=== PATIENT | female | born 1970 | race Caucasian/White ===

== ENCOUNTER 2016-04-16 13:01 | Emergency (ER) | payer OTHER ==
[~2016-04-16] VITALS: Ht 167.6 cm; Wt 76.4 kg
[~2016-04-16 13:01] MED LIST: COCO1CAP PO; IRON PO; LEVO75TA PO; LISI-461 PO; OMEGCAP2 PO; OXYC5TAB PO
[2016-04-16 13:07] VITALS: TEMP 36.5; Ht 167.6 cm; Wt 76.4 kg
[2016-04-16] MEDS ORDERED: HYDROmorphone INJ 1 MG/ML SYR IV STA (13:24)
[2016-04-16] MEDS ORDERED: SODIUM CHLORIDE 0.9% 1000ML 1,000 ML IV STA (13:24)
[2016-04-16] MEDS ORDERED: KETOROLAC TROMETHAMINE 30 MG/ML VIAL IV STA (13:24)
--- NOTE | 2016-04-16 13:54 | EMERGENCY ROOM VISIT NOTE ---
History Report prepared by Mode: Stephanie Roth Under the Supervision of: Dr. Osito Norris M.D. First contact with patient: 13:17 Chief Complaint: ABDOMINAL PAIN Stated Complaint: ABD PAIN Nursing Triage Summary: Triage note: pt reports "i have severe abd cramping." pt reports ablasion approx 6 months ago. pt reports nausea. pt reports she has not taken anything for pain since 0830 today. History of Present Illness The patient is a 45 year old female who presents to the Emergency Room with complaints of waxing and waning diffuse abdominal pain that started 3 days ago. The pain worsened today. The patient states that the pain feels like her normal menstrual cramps, but it is more severe. She tried to relieve the pain with Advil, but it offered her no relief. The patient is also experiencing shortness of breath secondary to the pain. Additionally, she is experiencing vaginal bleeding. 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 The patient reports that her bowel movements have been normal and she denies diarrhea or hematochezia. The patient denies any chance of because her "tubes are tied." She states that she had an endometrial ablation done about 6 months ago secondary to adenomyosis. She states that her vaginal bleeding was so severe at that time that she was becoming anemic. The patient called her OB-DRILL PRESS OPERATOR [employer] earlier today and they told her to come into the ED. The patient does not have her appendix, but she still has her gallbladder. Source of History: patient Onset: 3-4 days ago Position: abdomen Quality: cramping Timing: waxes/wanes Associated Symptoms: + SOB (with pain), No diarrhea, No hematochezia Note: vaginal bleeding Review of Systems See HPI for pertinent positives & negatives. A total of 10 systems reviewed and were otherwise negative. Past Medical & Surgical Medical Problems: (1) Eczema (2) Hypertension Family History Cancer Diabetes mellitus Heart disease Hypertension Kidney disease Kidney stones Seizures Social History Smoking Status: Never Smoker Marital Status: single Housing Status: lives alone Current/Historical Medications Scheduled Coconut Oil (Coconut Oil Organic), 1 CAP PO QAM Hydrochlorothiazide (Hydrochlorothiazide), 12.5 MG PO QAM Levothyroxine Sodium (Synthroid), 75 MCG PO QAM Lisinopril (Zestril), 10 MG PO QAM [place]-3 Fatty Acids (Fish Oil), 1 CAP PO TID Scheduled PRN Ibuprofen (Advil), 800 MG PO Q8 PRN for Pain Oxycodone/Acetaminophen 5MG/325MG (Percocet 5MG/325MG), 1-2 TAB PO Q4H PRN for Pain Allergies Coded Allergies: Bupropion (Verified Allergy, Unknown, TONGUE SWELLING, 04/16/16) Physical Exam Vital Signs Date Time Temp Pulse Resp B/P Pulse Ox O2 Delivery O2 Flow Rate FiO2 04/16/16 16:19 67 18 151/93 100 04/16/16 15:37 71 18 142/89 100 Room Air 04/16/16 14:35 74 20 126/80 98 Room Air 04/16/16 13:59 75 04/16/16 13:07 36.5 77 18 203/95 100 Room Air Physical Exam GENERAL: Patient is a healthy-appearing well-nourished female. HEAD: Normocephalic atraumatic EYES: Ocular movements intact pupils equal and react to light OROPHARYNX mucous membranes are moist no exudates present no erythema or edema present NECK: Supple no nuchal rigidity CHEST: Good equal expansion LUNGS: Clear and equal to auscultation CARDIAC: Normal S1 and S2 ABDOMEN: Soft tenderness in left lower quadrant no guarding BACK: No CVA tenderness EXTREMITIES: No pain upon palpation normal muscle strength in all groups no clubbing cyanosis or edema NEURO: Patient is following commands is answering questions appropriately. Alert and oriented x3 Cranial Nerves 2-12 grossly intact Medical Decision & Procedures ER Provider Diagnostic Interpretation: X-ray results as stated below per my interpretation and radiologist interpretation. Other radiology results as stated below per my review and radiologist interpretation: ABDOMEN 2VIEW W/PA CHEST RTN IMPRESSION: No evidence of bowel obstruction. No evidence of free air. Electronically signed by: Diaz Mcguire M.D. 04/16/2016 3:35 PM Dictated Date/Time: 04/16/2016 3:34 PM EXAMINATION: PELVIC ULTRASOUND IMPRESSION: 1. Moderately distended central endometrial canal with probable hemorrhagic fluid level 2. This potentially relates to hydrometrocolpos versus cervical stenosis 3.. Small bilateral ovarian cysts. 4. Several uterine fibroids Electronically signed by: Mikhail Roberts M.D. 04/16/2016 3:41 PM Dictated Date/Time: 04/16/2016 3:36 PM Laboratory Results 04/16/16 13:43 Red Blood Count 3.66, Mean Corpuscular Volume 92.1, Mean Corpuscular Hemoglobin 32.8, Mean Corpuscular Hemoglobin Concent 35.6, Mean Platelet Volume 9.9, Neutrophils (%) (Auto) 76.8, Lymphocytes (%) (Auto) 11.7, Monocytes (%) (Auto) 8.9, Eosinophils (%) (Auto) 1.6, Basophils (%) (Auto) 0.5, Neutrophils # (Auto) 7.91, Lymphocytes # (Auto) 1.20, Monocytes # (Auto) 0.92, Eosinophils # (Auto) 0.16, Basophils # (Auto) 0.05 04/16/16 13:43 Test 04/16/16 13:15 04/16/16 13:43 Urine Color YELLOW Urine Appearance CLEAR (CLEAR) Urine pH 6.0 (4.5-7.5) Urine Specific Jackson 1.008 (1.000-1.030) Urine Protein NEG (NEG) Urine Glucose (UA) NEG (NEG) Urine Ketones NEG (NEG) Urine Occult Blood 3+ (NEG) Urine Nitrite NEG (NEG) Urine Bilirubin NEG (NEG) Urine Urobilinogen NEG (NEG) Urine Leukocyte Esterase SMALL (NEG) Urine WBC (Auto) 5-10 /hpf (0-5) Urine RBC (Auto) 5-10 /hpf (0-4) Urine Hyaline Casts (Auto) 1-5 /lpf (0-5) Urine Epithelial Cells (Auto) >30 /lpf (0-5) Urine Bacteria (Auto) NEG (NEG) White Blood Count 10.29 K/uL (4.8-10.8) Red Blood Count 3.66 M/uL (4.2-5.4) Hemoglobin 12.0 g/dL (12.0-16.0) Hematocrit 33.7 % (37-47) Mean Corpuscular Volume 92.1 fL (80-100) Mean Corpuscular Hemoglobin 32.8 pg (25-34) Mean Corpuscular Hemoglobin Concent 35.6 g/dl (32-36) Platelet Count 291 K/uL (130-400) Mean Platelet Volume 9.9 fL (7.4-10.4) Neutrophils (%) (Auto) 76.8 % Lymphocytes (%) (Auto) 11.7 % Monocytes (%) (Auto) 8.9 % Eosinophils (%) (Auto) 1.6 % Basophils (%) (Auto) 0.5 % Neutrophils # (Auto) 7.91 K/uL (1.4-6.5) Lymphocytes # (Auto) 1.20 K/uL (1.2-3.4) Monocytes # (Auto) 0.92 K/uL (0.11-0.59) Eosinophils # (Auto) 0.16 K/uL (0-0.5) Basophils # (Auto) 0.05 K/uL (0-0.2) RDW Standard Deviation 45.1 fL (36.4-46.3) RDW Coefficient of Variation 13.3 % (11.5-14.5) Immature Granulocyte % (Auto) 0.5 % Immature Granulocyte # (Auto) 0.05 K/uL (0.00-0.02) Anion Gap 11.0 mmol/L (3-11) Est Creatinine Clear Calc Drug Dose 93.1 ml/min Estimated GFR () 104.9 Estimated GFR (Non- 90.5 BUN/Creatinine Ratio 10.6 (10-20) Calcium Level 8.9 mg/dl (8.5-10.1) Total Bilirubin 0.7 mg/dl (0.2-1) Direct Bilirubin 0.2 mg/dl (0-0.2) Aspartate Amino Transf (AST/SGOT) 21 U/L (15-37) Alanine Aminotransferase (ALT/SGPT) 28 U/L (12-78) Alkaline Phosphatase 54 U/L (45-117) Total Protein 7.2 gm/dl (6.4-8.2) Albumin 3.7 gm/dl (3.4-5.0) Lipase 73 U/L (73-393) Human Chorionic Gonadotropin, Qual NEG (NEG) Labs reviewed by ED physician. Medications Administered Medications (Trade) Dose Ordered Sig/Saturnino Route Start Time Stop Time Status Last Admin Dose Admin Sodium Chloride (Nss 1000ml) 1,000 ml @ 999 mls/hr Q1H1M STAT IV 04/16/16 13:24 04/16/16 14:24 DC 04/16/16 13:56 999 MLS/HR Ketorolac Tromethamine (Toradol Inj) 30 mg NOW STAT IV 2/10/17 13:24 04/16/16 13:26 DC 04/16/16 13:57 30 MG Oxycodone/ Acetaminophen (Percocet 5/ 325MG Home Pack) 1 homepack UD ONCE PO 04/16/16 16:15 04/16/16 16:16 DC 04/16/16 16:05 1 HOMEPACK ED Course 1318: Past medical records reviewed. The patient was evaluated in room A7. A complete history and physical examination was performed. 1324: Ordered Toradol Inj 30 mg IV, Sodium Chloride 1000 ml @ 999 mls/hr IV 1552: I discussed the patient's case with Dr. Ngo - OB-[employer]RILL PRESS OPERATOR [employer]. She recommends having the patient follow-up in the office on Tuesday. 1559: Upon reexamination the patient is doing well. I discussed results and treatment plan with the patient. She verbalizes agreement and understanding. The patient is ready for discharge. 1615: Ordered Oxycodone/Acetaminophen 1 homepack PO Medical Decision Differential diagnosis: Etiologies such as appendicitis, diverticulitis, PUD, biliary pathology, UTI, pancreatitis, obstruction, mesenteric ischemia, aortic pathology, infections, inflammatory bowel disease, renal colic, as well as others were entertained. This is a 45-year-old female who presents emergency department complaining of pelvic cramping. The patient has a history of ablation is requesting additional imaging. For this reason IV was established, patient given normal saline bolus, Toradol. She refused Dilaudid emergency department. Repeat examination revealed much improvement patient's symptoms. The patient's ultrasound is concerning for hydrometrocolpos. She was discussed with OB who felt that the patient can be safely discharged home with close follow-up with the office. I did discuss these results with the patient as well was in agreement with the treatment plan. The patient was given a prescription for Percocet until her follow-up. Patient was in agreement with the treatment plan. Consults Time Called: 0 Consulting Physician: Dr. Ngo - OB[employer]PER[employer] Returned Call: [phone] I discussed the patient's case with Dr. Ngo - OB[employer]. She recommends having the patient follow-up in the office on Tuesday. Impression Primary Impression: Hydrometrocolpos Scribe Attestation The scribe's documentation has been prepared under my direction and personally reviewed by me in its entirety. I confirm that the note above accurately reflects all work, treatment, procedures, and medical decision making performed by me. Departure Information Dispostion Home / Self-Care Prescriptions Oxycodone/Acetaminophen 5MG/325MG (PERCOCET 5MG/325MG) Tab 1-2 TAB PO Q4H Y for Pain, #14 TAB Prov: Osito Norris MD 04/16/16 Referrals Stephy Cooney DO (PCP) Forms Call Back Authorization, HOME CARE DOCUMENTATION FORM, IMPORTANT VISIT INFORMATION Patient Instructions ED Pelvic Pain [facility], My [facility] Additional Instructions Follow up with Dr Hernández's office on Tuesday You received narcotic or benzodiazepene medication while in the emergency room today. Do not drive, operate heavy machinery, or drink alcohol under the influence of this medication. Take 600 mg Ibuprofen every 6 hours Take Percocet for breakthrough pain You have been examined and treated today on an emergency basis only. This is not a substitute for, or an effort to provide, complete comprehensive medical care. It is impossible to recognize and treat all injuries or illnesses in a single emergency department visit. It is therefore important that you follow up closely with Dr Cooney. Call as soon as possible for an appointment. Thank you for your time and consideration. I look forward to speaking with you again soon. Please don't hesitate to call us if you have any questions.
[2016-04-16 13:57] LABS: BASO % 0.5 %; BASO ABS # 0.05 K/uL (0-0.2); COMPLETE YES; EOS % 1.6 %; HEMATOCRIT 33.7 % (37-47); IG% 0.5 %; LYMPH % 11.7 %; MEAN CELL VOLUME 92.1 fL (80-100); MEAN CORPUSCULAR HEMOGLOBIN 32.8 pg (25-34); MEAN CORPUSCULAR HGB CONC 35.6 g/dl (32-36); MEAN PLATELET VOLUME 9.9 fL (7.4-10.4); MONO % 8.9 %; NEUT % 76.8 %; PLATELET COUNT 291 K/uL (130-400); RED BLOOD COUNT 3.66 M/uL (4.2-5.4); WHITE BLOOD COUNT 10.29 K/uL (4.8-10.8)
[2016-04-16 14:02] LABS: URINE APPEARANCE CLEAR (CLEAR); URINE BILIRUBIN NEG (NEG); URINE COLOR YELLOW; URINE NITRITE NEG (NEG); URINE SPECIFIC GRAVITY 1.008 (1.000-1.030); UROBILINOGEN NEG (NEG)
[2016-04-16 14:03] LABS: URINE EPITHELIAL CELL AUTO >30 /lpf (0-5)
[2016-04-16 14:04] LABS: MANUAL MICROSCOPIC REQUIRED? NO; REVIEW REQ? NO
[2016-04-16 14:14] LABS: BUN/CREATININE RATIO 10.6 (10-20); CALCIUM 8.9 mg/dl (8.5-10.1); CREATININE 0.78 mg/dl (0.60-1.20); POTASSIUM 3.9 mmol/L (3.5-5.1)
[2016-04-16 14:22] LABS: PREG INTERNAL NEGATIVE QC NEG CLEAR BACKGROUND; PREG INTERNAL POSITIVE QC POS CONTROL LINE
--- NOTE | 2016-04-16 15:37 | DIAGNOSTIC IMAGING REPORT ---
ABDOMEN 2VIEW W/PA CHEST RTN CLINICAL HISTORY: Left-sided abdominal/pelvic pain COMPARISON STUDY: No previous studies for comparison. FINDINGS: The erect chest reveals no evidence of free air. There is no evidence of focal pulmonary consolidation.] Erect and supine views of the abdomen reveal no abnormally dilated loops of large or small bowel. There are no transition zone to indicate bowel obstruction. Incidental note is made of a transitional L5 vertebra IMPRESSION: No evidence of bowel obstruction. No evidence of free air. Electronically signed by: Diaz Mcguire M.D. 04/16/2016 3:35 PM Dictated Date/Time: 04/16/2016 3:34 PM
--- NOTE | 2016-04-16 15:43 | DIAGNOSTIC IMAGING REPORT ---
EXAMINATION: PELVIC ULTRASOUND CLINICAL HISTORY: Pt c/o lf sided pelvic pain PELVIC PAIN. FLANK PAIN. COMPARISON STUDY: None FINDINGS: The uterus measured 12 cm.. Probable fibroid involvement. Largest uterine body fibroid is 2.4 cm. Distended central canal with a fluid/fluid level and/or hemorrhagic fluid level. The endometrial stripe measured 2.4 cm. The right ovary measured 3 x 2 cm. Normal vascular flow. 1.5 cm ovarian cyst.. The left ovary measured 2.5 cm maximum dimension with normal vascular flow several small subcentimeter follicular cysts.. There is no ultrasonographic evidence of ovarian torsion. It should be noted that ovarian torsion can be present with normal Doppler ultrasonographic findings. There was no evidence of pathologic free pelvic fluid. IMPRESSION: 1. Moderately distended central endometrial canal with probable hemorrhagic fluid level 2. This potentially relates to hydrometrocolpos versus cervical stenosis 3.. Small bilateral ovarian cysts. 4. Several uterine fibroids Electronically signed by: Mikhail Roberts M.D. 04/16/2016 3:41 PM Dictated Date/Time: 04/16/2016 3:36 PM
[2016-04-16] MEDS ORDERED: OXYC-57 PO (16:06)
[2016-04-16] MEDS ORDERED: IBUP-1050 PO (16:10)
[2016-04-16] MEDS ORDERED: HYDR12.55 PO (16:10)
[2016-04-16] MEDS ORDERED: PERCOCET HOME PACK PO ONE (16:15)
[2016-04-16 16:19] VITALS: BP 151/93; PULSE 67; O2SAT 100
[2016-05-14] MEDS ORDERED: OXYC-57 PO (15:57)
[2016-05-14] MEDS ORDERED: VITAMIN B12 PO (15:58)
[2016-05-21] MEDS ORDERED: BIOT7500 PO (10:20)
[2016-05-31] MEDS ORDERED: OXYC-57 PO (10:07)
== END 2016-04-16 16:20 | disposition home or self-care (01) ==
LOC: C.EDB 13:03 → C.EDA 16:20
DX: N89.8 Other specified noninflammatory disorders of vagina (principal); I10 Essential (primary) hypertension

== ENCOUNTER → 2016-04-22 | Outpatient (CLI) | payer OTHER ==
[~2016-04-22] MED LIST changes: +BIOT7500 PO; +HYDR12.55 PO; +IBUP-1050 PO; -IRON PO; +OXYC-57 PO; -OXYC5TAB PO; +VITAMIN B12 PO
[2016-04-27 02:27] LABS: CHLAMYDIA TRACH RNA*** NOT DETECTED (NOT DETECTED); GC (NEIS GONORRHOEAE)RNA** NOT DETECTED (NOT DETECTED)
== END | disposition home or self-care (01) ==
LOC: C.LAB1850 14:22
PROVIDERS: ATTEND Obstetrics & Gynecology
DX: Z11.3 Encounter for screening for infections with a predominantly sexual mode of transmission (principal)

== ENCOUNTER → 2016-04-22 | Outpatient (CLI) | payer OTHER | END | disposition home or self-care (01) | LOC: C.PAPS 10:00 | PROVIDERS: ATTEND Obstetrics & Gynecology | DX: Z01.419 Encounter for gynecological examination (general) (routine) without abnormal findings (principal); A59.01 Trichomonal vulvovaginitis ==

== ENCOUNTER 2016-05-31 05:10 | Observation (INO) | payer OTHER ==
[2016-05-14 15:59] VITALS: BMI 25.0
[2016-05-19 16:46] LABS: BASO ABS # 0.08 K/uL (0-0.2); COMPLETE YES; EOS % 2.5 %; HEMATOCRIT 34.4 % (37-47); IG% 0.5 %; LYMPH % 25.8 %; LYMPH ABS # 2.04 K/uL (1.2-3.4); MEAN CELL VOLUME 93.5 fL (80-100); MEAN CORPUSCULAR HEMOGLOBIN 32.3 pg (25-34); MEAN CORPUSCULAR HGB CONC 34.6 g/dl (32-36); MEAN PLATELET VOLUME 9.7 fL (7.4-10.4); MONO % 7.5 %; NEUT % 62.7 %; PLATELET COUNT 325 K/uL (130-400); RED BLOOD COUNT 3.68 M/uL (4.2-5.4); WHITE BLOOD COUNT 7.91 K/uL (4.8-10.8)
[2016-05-19 17:01] LABS: BUN/CREATININE RATIO 11.5 (10-20); CALCIUM 8.7 mg/dl (8.5-10.1); CREATININE 0.93 mg/dl (0.60-1.20); POTASSIUM 4.3 mmol/L (3.5-5.1)
[2016-05-31] VITALS (10 sets, daily range): BP systolic 127–149; BP diastolic 81–93; PULSE 64–126; TEMP 36.4–37.5; O2SAT 96–100; Ht 167.6 cm; Wt 71.8 kg
[~2016-05-31] VITALS: Ht 167.6 cm; Wt 71.8 kg
[~2016-05-31 05:10] MED LIST changes: -HYDR12.55 PO
[2016-05-31] MEDS ORDERED: CEFAZOLIN 2000 MG/60 ML D5W IV SCH (06:00)
[2016-05-31] MEDS ORDERED: LACTATED RINGER'S 1000ML 1,000 ML IV SCH ×3 (06:00→10:01)
[2016-05-31] MEDS ORDERED: BUPIVACAINE 0.5 % 5 MG/1 ML MPF 30ML VIAL ONE (06:48)
[2016-05-31] MEDS ORDERED: METHYLENE BLUE 0.5% 10 ML VIAL ONE (06:48)
[2016-05-31] MEDS ORDERED: FENTANYL CITRATE INJ 50 MCG/1 ML 2 ML VIAL ONE ×2 (07:03→08:07)
[2016-05-31] MEDS ORDERED: MIDAZOLAM HCL 1 MG/ML 2ML VIAL ONE (07:04)
--- NOTE | 2016-05-31 07:16 | History & Physical Bridge Note ---
H&P Re-Evaluation Bridge Note: I have examined the patient, reviewed the History & Physical and in the interval since the performance of the History & Physical I have noted the following changes of clinical significance: No changes noted
[2016-05-31] MEDS ORDERED: HYDROmorphone INJ 2 MG/ML SYR/VIAL ONE (07:45)
[2016-05-31] MEDS ORDERED: ROCURONIUM BROMIDE 10 MG/ML 5 ML VIAL ONE ×2 (08:27→08:51)
[2016-05-31] MEDS ORDERED: LIDOCAINE HCL 2% 2 ML VIAL (20MG/ML) ONE (08:27)
[2016-05-31] MEDS ORDERED: PROPOFOL IV EMULSION 10 MG/ML 20 ML VIAL IV ONE (08:27)
[2016-05-31] MEDS ORDERED: ONDANSETRON INJ 2 MG/ML 2 ML VIAL ONE (08:28)
[2016-05-31] MEDS ORDERED: GLYCOPYRROLATE INJ 0.2 MG/ML VIAL ONE (08:28)
[2016-05-31] MEDS ORDERED: DEXAMETHASONE SOD INJ 4 MG/ML VIAL ONE (08:28)
[2016-05-31] MEDS ORDERED: LABETALOL HCL IV 5 MG/ML 20ML IV ONE (08:28)
[2016-05-31] MEDS ORDERED: LARYING-O-JET KIT (LTA) EXT ONE ×2 (08:28)
[2016-05-31] MEDS ORDERED: METOCLOPRAMIDE HCL INJ 5 MG/ML 2 ML VIAL ONE (08:28)
[2016-05-31] MEDS ORDERED: DiphenhydrAMINE HCL 50 MG/ML VIAL ONE (08:28)
[2016-05-31] MEDS ORDERED: NEOSTIGMINE METHYLSULFATE 5 MG/5 ML SYR ONE (08:28)
[2016-05-31] MEDS ORDERED: ONDANSETRON INJ 2 MG/ML 2 ML VIAL IV PRN ×2 (08:45→10:15)
[2016-05-31] MEDS ORDERED: HYDROmorphone INJ 1 MG/ML SYR IV PRN (08:45)
[2016-05-31] MEDS ORDERED: ATROPINE SULFATE 0.1 MG/ML 5ML SYR IV PRN (08:45)
[2016-05-31] MEDS ORDERED: EpHEDrine SULFATE INJ 50 MG/ML AMP IV PRN (08:45)
[2016-05-31] MEDS ORDERED: PROMETHAZINE HCL INJ 6.25 MG in SODIUM CHLORIDE 0.9% 50ML 50 ML IV PRN (08:45)
--- NOTE | 2016-05-31 10:05 | [facility] Post Operative Brief Note ---
Immediate Operative Summary Operative Date May 31, 2016. Pre-Operative Diagnosis Menorrhagia Post-Operative Diagnosis Same as preop Procedure(s) Performed Total Laparoscopic Hysterectomy Bilateral Salpingectomy Robot Assist; Cystoscopy Surgeon Dr. Hernández Sql Analyst Surgeon(s) None Estimated Blood Loss 100 ML Findings Dense bladder adhesions Specimens A. Cervix, Uterus, Bilateral Fallopian Tubes Drains Fernandez Anesthesia General Complication(s) None Disposition Recovery Room / PACU
--- NOTE | 2016-05-31 10:06 | Discharge Instructions ---
Discharge Instructions Date of Service May 31, 2016. Admission Reason for Admission: Menorrhagia, Pelvic Pain Discharge Discharge Diagnosis / Problem: menorrhagia Discharge Goals Goal(s): Routine recovery after surgery Activity Recommendations Activity Limitations: per Instructions/Follow-up section . Instructions / Follow-Up Instructions / Follow-Up POST OPERATIVE: BOWEL FUNCTION/MEDICATIONS: 1. Constipation pain and discomfort are the most common complaints 5-7 days after surgery. Points 2-6 address the things that can help. 2. Chewing gum can help stimulate the gut and help improve digestion and motility. 3. Milk of Magnesia 1-2 times per day until return of bowel function. 4. Colace is a stool softener that helps. Taking this 2-3 times per day until bowel function returns to normal is highly recommended. 5. Dulcolax is a laxative that may be used if several days have passed without a bowel movement. Alternatively Miralax may be used daily instead. 6. Drink plenty of fluids as this will also reduce constipation. 7. Narcotic pain medications will be prescribed by your physician. They are safe to use and we encourage you to use them. If you are not allergic, ibuprofen will also be prescribed. Many patients will be able to transition off of the narcotic medications to ibuprofen by postoperative day 3. ACTIVITY RECOMMENDATIONS: 1. Get plenty of rest and listen to your body. If you are tired, take a nap. 2. You may shower, but do not take a tub bath until you see your doctor at the 2 week post operative visit. 3. Absolutely NO intercourse and nothing in the vagina until you are examined by your doctor at the 6 week visit. At that visit it will be determined when such activities can be resumed. This can range from 6-12 weeks after your surgery depending on healing time. 4. The main physical activity in the first week should be walking. By the second week you can slowly increase activity. There are no limits on walking up and down stairs. 5. Do not lift more than 5-10 lbs for 4 weeks. Remember the "one-handed rule", i.e. if you can lift something with only one hand it's likely okay. 6. Minimize car wrecker like vacuuming and exercising for 4 weeks. "Overdoing it" can lead to incisions not healing, pain and vaginal bleeding , so again, listen to your body. 7. Driving can be resumed when you feel able. Do not drive within 24 hours of taking a narcotic medication. EXPECTATIONS: 1. Vaginal spotting, bleeding and discharge are common after surgery. There may even be an odor to the discharge which is often related to sutures used in the vagina. If you experience heavy vaginal bleeding, call the office number day or night [phone]. 2. Bladder discomfort is common after surgery from the catheter. This usually resolves in 1-2 weeks. 3. By the end of the 3rd or 4th week you should be feeling much better. It may take up to 6 weeks for your energy levels to return to normal. 4. Narcotic medications have side effects such as: dizziness, headache, nausea and/or vomiting. If you suspect your pain medication is causing problems, call our office and we may be able to prescribe an alternate medication. 5. The skin incisions are often covered with a liquid bandage. This will gradually peel off over time. CALL THE OFFICE IF YOU HAVE ANY OF THE FOLLOWIN. Temperature of 101 degrees or higher. 2. Severe abdominal or pelvic pain not relieved by pain medication. 3. Persistent nausea or vomiting. 4. Increased pain with urination or difficulty urinating. 5. Bright red bleeding that soaks more than 1 pad per hour. CONTACT PHONE NUMBERS: Main Office: [phone] Surgical Nurse: [phone] extension [phone] Avoid all tobacco products. If you need help to stop smoking, call [place]'s FREE QUITLINE at . This is a free call. Current Hospital Diet Patient's current hospital diet: Discharge Diet Recommended Diet: Regular Diet Procedures Procedures Performed: Total Laparoscopic Hysterectomy Bilateral Salpingectomy Robot Assist; Cystoscopy Pending Studies Studies pending at discharge: no Medical Emergencies . Who to Call and When: Medical Emergencies: If at any time you feel your situation is an emergency, please call 911 immediately. . Non-Emergent Contact Non-Emergency issues call your: Ash Worker . . "Provider Documentation" section prepared by Tremaine Hernández. VTE Core Measure Inpt VTE Proph given/why not?: Ben Elizabeth, TRACY's
[2016-05-31] MEDS ORDERED: OXYC-57 PO (10:07)
[2016-05-31] MEDS ORDERED: KETOROLAC TROMETHAMINE 30 MG/ML VIAL IV. PRN (10:15)
[2016-05-31] MEDS ORDERED: OXYCODONE/ACETAMINOPHEN 5-325 TAB PO PRN ×2 (10:15)
[2016-05-31] MEDS ORDERED: SIMETHICONE 80 MG CHEW PO PRN (10:15)
[2016-05-31] MEDS ORDERED: MEPERIDINE HCL 50 MG/ML CARP IV PRN (10:15)
[2016-05-31] MEDS ORDERED: PROMETHAZINE HCL INJ 12.5 MG in SODIUM CHLORIDE 0.9% 50ML 50 ML IV PRN (10:15)
[2016-05-31] MEDS ORDERED: IBUPROFEN 600 MG TAB PO PRN (10:15)
[2016-05-31] MEDS ORDERED: PROMETHAZINE HCL INJ 25 MG in SODIUM CHLORIDE 0.9% 50ML 50 ML IV PRN (10:15)
[2016-05-31] MEDS ORDERED: ZOLPIDEM TARTRATE 5 MG TAB PO PRN (10:15)
[2016-05-31] MEDS ORDERED: ACETAMINOPHEN 325 MG TAB PO PRN (10:15)
[2016-05-31] MEDS ORDERED: MEPERIDINE HCL 75 MG/ML CARP IV PRN (10:15)
[2016-05-31] MEDS ORDERED: MAGNESIUM HYDROXIDE SUSP 30 ML UDC PO PRN (10:15)
[2016-05-31] MEDS ORDERED: BISACODYL 10 MG SUPP PR PRN (10:15)
[2016-05-31] MEDS: FENTANYL CITRATE INJ 50 MCG/1 ML 2 ML VIAL IV PRN ×4 (10:16→10:31)
[2016-05-31] MEDS ORDERED: TISSEEL FIBRIN SEALANT 4ML TOP ONE (10:17)
--- NOTE | 2016-05-31 10:24 | Medical Student: [facility] ---
Immediate Operative Summary Operative Date May 31, 2016. Pre-Operative Diagnosis Menorrhagia Post-Operative Diagnosis Same as pre-operative Procedure(s) Performed 1. Laparoscopic Hysterectomy and bilateral salingectomy, robot assisted 2. cystoscopy Surgeon Dr. Hernández Power Plant Engineer Surgeon(s) none Estimated Blood Loss 100mL Findings Bladder adhesions consistent with prior c-sections; otherwise normal anatomy Specimens Cervix, uterus and bilateral fallopian tubes Drains none Anesthesia General with endotracheal tube Complication(s) None Disposition Recovery Room / PACU
--- NOTE | 2016-05-31 11:05 | Anesthesiology Progress Note ---
Anesthesia Post Op Note Date & Time May 31, 2016 at 11:05 Vital Signs Pain Intensity: 3 Vital Signs Past 12 Hours Date Time Temp Pulse Resp B/P Pulse Ox O2 Delivery O2 Flow Rate FiO2 05/31/16 11:00 79 16 141/86 100 Nasal Cannula 2 05/31/16 10:50 36.2 62 16 121/74 99 Nasal Cannula 2 05/31/16 10:40 58 16 128/72 100 Nasal Cannula 2 05/31/16 10:30 75 16 148/90 100 Mask 10 05/31/16 10:20 57 16 148/85 100 Mask 10 05/31/16 10:12 36.6 67 16 140/82 100 Mask 10 05/31/16 05:42 36.6 70 18 144/86 99 Room Air Notes Mental Status: alert / awake / arousable, participated in evaluation Pt Amnestic to Procedure: Yes Nausea / Vomiting: adequately controlled Pain: adequately controlled Airway Patency, RR, SpO2: stable & adequate BP & HR: stable & adequate Hydration State: stable & adequate Anesthetic Complications: no major complications apparent
[2016-05-31] MEDS ORDERED: IV FLUIDS COMPLETED PRN (12:30)
--- NOTE | 2016-05-31 12:41 | OPERATIVE REPORT ---
DATE OF OPERATION: 05/31/2016 PREOPERATIVE DIAGNOSIS: Menorrhagia, pelvic pain. POSTOPERATIVE DIAGNOSIS: Same. PROCEDURE: Total laparoscopic hysterectomy, bilateral salpingectomy, conservation of ovaries, robotic assistance, cystoscopy. SURGEON: Dr. Hernández. SLAB POLISHER: None. ESTIMATED BLOOD LOSS: 100 mL. FINDINGS: Dense bladder adhesions. SPECIMENS: Cervix, uterus, bilateral fallopian tubes. DRAINS: Fernandez catheter. ANESTHETIC: General. COMPLICATIONS: None. DISPOSITION: Recovery room. PROCEDURE: Linn was given a general anesthetic, prepped and draped in dorsolithotomy position in [facility]. Bladder drained with a Fernandez catheter and V-Care inserted into her uterus and then was sewn in place. Gloves changed and a supraumbilical incision was made with scalpel using open Fiona technique. We did cut down and entered the peritoneal cavity without difficulty. Blunt-tipped Fiona trocar then placed. Balloon inflated. CO2 gas to insufflate the abdomen. FINDINGS: Upper abdomen is normal. There are no anterior abdominal wall incisions despite the midline scars from previous. Deep Trendelenburg position obtained. There were dense bladder flap adhesions, otherwise normal pelvis. Some small benign appearing cysts on the left ovary. Prior tubal ligation and blood noted in the portion of the tube connecting to the uterus. Because of the dense bladder adhesions we placed 3 robotic ports, 2 in the right side, 1 on the left and 1 left upper quadrant 11 mm bladeless accessory port. Robot was then docked. Arm #1 was monopolar meri. Arm #2 was bipolar [place]. Arm #3 was ProGrasp. Using the uterine manipulator I was able to identify the ureter both on left and right sides. It seemed to follow normal location. The left fallopian tube was carefully dissected away from the left ovary using the monopolar meri and the bipolar [place]. There was some dense adhesions here; however none of these were near, thus removed the distal portion of the fallopian tube as the proximal portion was still attached to the uterus from the prior tubal ligation. Same process was repeated on the right. Both removed through the accessory port. We then coagulated the left side uteroovarian blood supply with bipolar [place], cut this same process with the round ligament and cut this, skeletonized the uterine arteries. The dense bladder flap adhesions were sharply dissected away carefully. I was able to find the plane of the cervix and fully dissect them away. I was then able to isolate the left uterine artery and vein and coagulate these with the bipolar [place] and cut. Note we were well away from the ureter at this time. The exact same process was continued on the right. The right uterine vein and artery were somewhat difficult to initially coagulate so I did place a clip robotically on the right uterine vessel and this improved hemostasis dramatically. At this stage, we then made an anterior colpotomy as the bladder was well away from the cervix, continue the colpotomy to remove the cervix from the uterus completely staying medial to our uterine vessel ligations. Uterus was then removed by pulling through into the vagina and then placing a sponge in a glove into the vagina for pneumoperitoneum after the uterus was removed. Methylene blue then given. It should be noted also Ancef 2 grams IV was given preoperatively as well prior to the procedure. Instrument exchange, arm #1 became the paco needle transportation driver, arm #2 became the cobra. A 12 inch 2-0 90-day V-Loc suture then placed and we closed the cuff. The cuff had good thickness. We ensured at least 1 cm bites of vaginal mucosa. The cuff was closed from left to right, back right to left. Suture was then cut so there was no tail and needle removed through the accessory port. After generous irrigation and suction, there was no bleeding noted. At this stage I performed cystoscopy by removing the Fernandez catheter and looking with the cystoscope. The bladder appeared normal, good strong jets of blue dye from the left and right ureter openings. No sign of sutures in the bladder and no pathology seen. Cystoscope removed and a new Fernandez catheter placed. We then using the robot to manipulate used 4 mL of Tisseel and placed this over the cuff, the uterine vessels and the ovarian vascular regions. This was then removed. At this stage hemostasis was excellent. Robot instruments were removed, robot undocked, ports were removed. Gas was allowed to escape. All injections were injected with 0.5% Marcaine. Fascia closed carefully [id number] 0 Vicryl sutures into the umbilical port and then subcutaneous closures with 0 Vicryl into this and the accessory port. After closure of 4-0 subcuticular Monocryl and Dermabond we checked the vaginal area. The sponge had been removed already and the seal had been airtight and there was no more vaginal bleeding noted. Sponge and instrument counts correct. I attest to the content of the Intraoperative Record and any orders documented therein. Any exceptio ns are noted below.
[2016-05-31] MEDS ORDERED: DOCUSATE SODIUM 100 MG CAP PO SCH (21:00)
--- NOTE | 2016-06-02 11:48 | DISCHARGE SUMMARY ---
Linn had a total laparoscopic hysterectomy on May 31. Her course in the hospital was unremarkable. The patient was discharged several hours after surgery on the same day of surgery. SUBJECTIVE: At that time, the patient had no complaints. Pain was well controlled with oral pain medication, was voiding well without catheter, had minimal to no vaginal bleeding and no extremity pain. PHYSICAL EXAMINATION: VITAL SIGNS: Stable. She was afebrile. IMPRESSION AND PLAN: She met discharge criteria and was let go on Percocet and told to follow up in the office. Discharge instructions were given to the patient and also reviewed with the patient as well.
== END 2016-05-31 17:00 | disposition home or self-care (01) ==
LOC: ENRESERVDT → ENRESERVTM → C.ACU 05:10 → C.MS4N 10:04
PROVIDERS: ADMIT Obstetrics & Gynecology; ATTEND Obstetrics & Gynecology
DX: N92.0 Excessive and frequent menstruation with regular cycle (principal); R10.2 Pelvic and perineal pain; N72 Inflammatory disease of cervix uteri; K66.0 Peritoneal adhesions (postprocedural) (postinfection); D21.9 Benign neoplasm of connective and other soft tissue, unspecified; I10 Essential (primary) hypertension; F32.9 Major depressive disorder, single episode, unspecified; E78.5 Hyperlipidemia, unspecified; N60.19 Diffuse cystic mastopathy of unspecified breast; E03.9 Hypothyroidism, unspecified; Z82.49 Family history of ischemic heart disease and other diseases of the circulatory system; Z83.49 Family history of other endocrine, nutritional and metabolic diseases; Z81.8 Family history of other mental and behavioral disorders; Z80.3 Family history of malignant neoplasm of breast
CPT/HCPCS: 58571; S2900

== ENCOUNTER → 2016-10-28 | Outpatient (CLI) | payer OTHER ==
[2016-10-28 12:34] LABS: BASO % 1.5 %; BASO ABS # 0.06 K/uL (0-0.2); COMPLETE YES; EOS % 5.5 %; HEMATOCRIT 35.1 % (37-47); IG% 0.8 %; LYMPH % 43.8 %; LYMPH ABS # 1.75 K/uL (1.2-3.4); MEAN CELL VOLUME 94.1 fL (80-100); MEAN CORPUSCULAR HEMOGLOBIN 32.4 pg (25-34); MEAN CORPUSCULAR HGB CONC 34.5 g/dl (32-36); MEAN PLATELET VOLUME 10.2 fL (7.4-10.4); MONO % 7.8 %; NEUT % 40.6 %; PLATELET COUNT 261 K/uL (130-400); RED BLOOD COUNT 3.73 M/uL (4.2-5.4)
[2016-10-28 12:41] LABS: BLOOD UREA NITROGEN 9 mg/dl (7-18); BUN/CREATININE RATIO 10.7 (10-20); CALCIUM 8.8 mg/dl (8.5-10.1); CARBON DIOXIDE 26 mmol/L (21-32); CHLORIDE 103 mmol/L (98-107); CREATININE 0.81 mg/dl (0.60-1.20); GLUCOSE 81 mg/dl (70-99); POTASSIUM 4.2 mmol/L (3.5-5.1); SODIUM 133 mmol/L (136-145)
[2016-10-28 12:52] LABS: CHOLESTEROL 221 mg/dl (0-200); CHOLESTEROL/HDL RATIO 2.5; HDL CHOLESTEROL 88 mg/dl; LDL CHOLESTEROL CALCULATED 99 mg/dl; THYROID STIMULATING HORMONE 0.539 uIu/ml (0.300-4.500); TRIGLYCERIDES 169 mg/dl (0-150); VERY LOW DENSITY LIPOPROT CALC 34 mg/dl
== END | disposition home or self-care (01) ==
LOC: C.LABPBG 09:33
PROVIDERS: ATTEND Family Medicine
DX: I10 Essential (primary) hypertension (principal); E03.9 Hypothyroidism, unspecified; E78.5 Hyperlipidemia, unspecified

== ENCOUNTER → 2016-12-02 | Outpatient (CLI) | payer OTHER ==
[2016-12-02 17:23] LABS: BASO % 1.8 %; BASO ABS # 0.08 K/uL (0-0.2); COMPLETE YES; EOS % 4.2 %; HEMATOCRIT 39.9 % (37-47); IG% 0.2 %; LYMPH % 30.1 %; LYMPH ABS # 1.35 K/uL (1.2-3.4); MEAN CELL VOLUME 97.6 fL (80-100); MEAN CORPUSCULAR HGB CONC 33.8 g/dl (32-36); MEAN PLATELET VOLUME 10.8 fL (7.4-10.4); MONO % 8.9 %; NEUT % 54.8 %; PLATELET COUNT 280 K/uL (130-400); RED BLOOD COUNT 4.09 M/uL (4.2-5.4); WHITE BLOOD COUNT 4.48 K/uL (4.8-10.8)
[2016-12-02 18:08] LABS: BLOOD UREA NITROGEN 9 mg/dl (7-18); BUN/CREATININE RATIO 11.5 (10-20); CALCIUM 9.2 mg/dl (8.5-10.1); CARBON DIOXIDE 25 mmol/L (21-32); CHLORIDE 106 mmol/L (98-107); CREATININE 0.81 mg/dl (0.60-1.20); GLUCOSE 85 mg/dl (70-99); POTASSIUM 4.3 mmol/L (3.5-5.1); SODIUM 138 mmol/L (136-145)
[2016-12-02 18:19] LABS: THYROID STIMULATING HORMONE 0.495 uIu/ml (0.300-4.500)
[2016-12-03 06:52] LABS: ESTIMATED AVERAGE GLUCOSE 91 mg/dl; HA1C FLAG Normal (Normal)
[2016-12-05 22:33] LABS: GLIADIN DEAMIDATED IgA AB 7 UNITS (<20); GLIADIN DEAMIDATED IgG AB 3 UNITS (<20); RETICULIN IgA AB Negative (Negative)
== END | disposition home or self-care (01) ==
LOC: C.LABPBG 11:53
PROVIDERS: ATTEND Physician Assistant
DX: R42 Dizziness and giddiness (principal); E03.9 Hypothyroidism, unspecified; Z13.21 Encounter for screening for nutritional disorder; R14.0 Abdominal distension (gaseous); Z11.3 Encounter for screening for infections with a predominantly sexual mode of transmission

== ENCOUNTER → 2017-02-10 | Outpatient (CLI) | payer OTHER ==
--- NOTE | 2017-02-15 07:47 | MAMMOGRAPHY REPORT ---
BILATERAL DIGITAL SCREENING MAMMOGRAM TOMOSYNTHESIS WITH CAD: 02/10/2017 CLINICAL HISTORY: Routine screening. Patient has no complaints. TECHNIQUE: Breast tomosynthesis in addition to standard 2D mammography was performed. Current study was also evaluated with a Computer Aided Detection (CAD) system. COMPARISON: Comparison is made to exam dated: 08/19/2010 mammogram - [facility]. BREAST COMPOSITION: The tissue of both breasts is heterogeneously dense, which may obscure small mas ses. FINDINGS: There is a possible grouped punctate microcalcifications in the upper outer posterior left breast, for which additional spot magnification views are recommended. No other suspicious mass, architectural distortion or cluster of microcalcifications is seen. IMPRESSION: ACR BI-RADS CATEGORY 0: INCOMPLETE EVALUATION: NEED ADDITIONAL IMAGING EVALUATION The possible grouped punctate microcalcifications in the upper outer posterior left breast need addit ional evaluation. The patient will be called to schedule an appointment. Approximately 10% of breast cancers are not detected with mammography. A negative mammographic report should not delay biopsy if a clinically suggestive mass is present. Mary Townsend M.D. ay/:02/14/2017 16:57:05 Del[employer] Developer: Suly SEBASTIAN(R)(M), [facility] letter sent: Addl Imaging 0 BI-RADS Code: ACR BI-RADS Category 0: Incomplete Evaluation: Need Additional Imaging Evaluation
== END | disposition home or self-care (01) ==
LOC: C.MAMM 09:18
PROVIDERS: ATTEND Family Medicine
DX: Z12.31 Encounter for screening mammogram for malignant neoplasm of breast (principal); R92.8 Other abnormal and inconclusive findings on diagnostic imaging of breast

== ENCOUNTER → 2017-02-24 | Outpatient (CLI) | payer OTHER ==
--- NOTE | 2017-02-24 14:34 | MAMMOGRAPHY REPORT ---
UNILATERAL LEFT DIGITAL DIAGNOSTIC MAMMOGRAM: 02/24/2017 CLINICAL HISTORY: Callback from screening mammogram for left breast calcifications. TECHNIQUE: Spot magnification left CC and ML views were obtained. COMPARISON: Comparison is made to exams dated: 02/10/2017 mammogram - [facility] an d 08/19/2010 mammogram - [facility]. BREAST COMPOSITION: The tissue of the left breast is heterogeneously dense, which may obscure small masses. FINDINGS: Spot magnification views of the left breast demonstrate a small 6 mm group of punctate jeremiah ign appearing calcifications in the left upper outer quadrant posteriorly. A few other scattered pun ctate benign-appearing calcifications are seen within the left upper outer quadrant. The calcificati ons are not clearly present on the prior 2010 exam although are probably benign given the benign morp hology. Recommend follow-up in 6 months to ensure stability. IMPRESSION: ACR-BI-RADS CATEGORY 3: PROBABLY BENIGN Grouped and scattered punctate benign-appearing calcifications in the left upper outer quadrant are p robably benign. Recommend follow-up diagnostic tomosynthesis mammograms of the left breast in 6 travon hs to confirm stability on spot magnification views. The patient has been verbally notified of the results. Approximately 10% of breast cancers are not detected with mammography. A negative mammographic report should not delay biopsy if a clinically suggestive mass is present. Joann Peñaloza M.D. ah/:02/24/2017 12:55:34 Porter Marina: Suly PEARCE)(Tamara), [facility] letter sent: Follow Up Recommended 3 BI-RADS Code: ACR-BI-RADS Category 3: Probably Benign
== END | disposition home or self-care (01) ==
LOC: C.MAMM 12:24
PROVIDERS: ATTEND Family Medicine
DX: R92.1 Mammographic calcification found on diagnostic imaging of breast (principal)

== ENCOUNTER → 2017-06-09 | Outpatient (CLI) | payer OTHER ==
[2017-06-09 17:08] LABS: HEMATOCRIT 36.1 % (37-47); HEMOGLOBIN 12.4 g/dL (12.0-16.0); MEAN CELL VOLUME 94.5 fL (80-100); MEAN CORPUSCULAR HEMOGLOBIN 32.5 pg (25-34); MEAN CORPUSCULAR HGB CONC 34.3 g/dl (32-36); MEAN PLATELET VOLUME 10.2 fL (7.4-10.4); PLATELET COUNT 268 K/uL (130-400); RED CELL DISTRIBUTION WIDTH CV 13.7 % (11.5-14.5); RED CELL DISTRIBUTION WIDTH SD 47.2 fL (36.4-46.3); WHITE BLOOD COUNT 5.98 K/uL (4.8-10.8)
[2017-06-09 17:42] LABS: ALBUMIN 3.5 gm/dl (3.4-5.0); ALT/SGPT 26 U/L (12-78); AST/SGOT 18 U/L (15-37); BLOOD UREA NITROGEN 11 mg/dl (7-18); CALCIUM 8.6 mg/dl (8.5-10.1); CARBON DIOXIDE 26 mmol/L (21-32); CREATININE 0.96 mg/dl (0.60-1.20); GLUCOSE 84 mg/dl (70-99); POTASSIUM 4.5 mmol/L (3.5-5.1); SODIUM 134 mmol/L (136-145)
[2017-06-09 17:52] LABS: ALKALINE PHOSPHATASE 43 U/L (45-117); CHOLESTEROL 222 mg/dl (0-200); LDL CHOLESTEROL CALCULATED 107 mg/dl; TOTAL PROTEIN 7.1 gm/dl (6.4-8.2)
== END | disposition home or self-care (01) ==
LOC: C.LABPBG 11:53
PROVIDERS: ATTEND Family Medicine
DX: I10 Essential (primary) hypertension (principal); E03.9 Hypothyroidism, unspecified; E78.5 Hyperlipidemia, unspecified; E55.9 Vitamin D deficiency, unspecified